=== PATIENT | male | born 1970 | race Caucasian/White ===

== ENCOUNTER 2018-06-09 07:00 | Day surgery (SDC) | payer BC ==
[~2018-06-09] VITALS: Ht 188 cm; Wt 83.9 kg
[~2018-06-09 07:00] MED LIST: ASPIRIN81 M2 PO; FEOSOL325 MG PO; INSULIN PUMP MC; NORMODYNE,TRAN200 MG PO; NORVASC10 MG PO; PRAVACHOL80 MG PO; VITAMIN D2000 UNIT PO
[2018-06-09 07:25] LABS: HEMATOCRIT 27.4 % (38.0-50.0); HEMOGLOBIN 8.9 G/DL (12.5-16.6); MCH 27.4 PG (29.0-34.0); MCHC 32.5 G/DL (30.0-36.0); MCV 84.3 FL (86-99); PLATELET COUNT 188 K/uL (156-360); RBC DIS.WIDTH-CV 13.6 % (11.8-14.6); RED BLOOD COUNT 3.25 M/uL (4.00-5.50); WHITE BLOOD COUNT 6.5 K/uL (4.1-10.2)
[2018-06-09 08:10] LABS: CHLORIDE 101 MEQ/L (99-109); POTASSIUM 4.6 MEQ/L (3.7-5.4); SODIUM 135 MEQ/L (136-147)
[2018-06-09 08:15] LABS: CREATININE 5.7 MG/DL (0.6-1.3); GFR ESTIMATE (CALCULATED) 11 mL/min/ (58.99-99999); GLUCOSE 126 mg/dL (70-99); UREA NITROGEN (BUN) 60 mg/dL (9-23)
[2018-06-09] MEDS ORDERED: NORCO 5/3251 TABLET PO (10:59)
[2018-06-09 11:30] VITALS: BP 165/91
[2018-06-09 12:36] VITALS: BP 163/87
[2018-06-09 12:59] VITALS: BP 156/88
== END 2018-06-09 13:05 | disposition home or self-care (01) ==
LOC: SDC 07:00
PROVIDERS: Surgery
PROC: 0WHG43Z Insertion of Infusion Device into Peritoneal Cavity, Percutaneous Endoscopic Approach (ICD-10-PCS; principal; 2018-06-09)
DX: I12.0 Hypertensive chronic kidney disease with stage 5 chronic kidney disease or end stage renal disease (principal); E11.22 Type 2 diabetes mellitus with diabetic chronic kidney disease; N18.6 End stage renal disease; E78.00 Pure hypercholesterolemia, unspecified; Z79.4 Long term (current) use of insulin; D64.9 Anemia, unspecified; Z83.3 Family history of diabetes mellitus; Z82.49 Family history of ischemic heart disease and other diseases of the circulatory system; Z72.0 Tobacco use; Z79.82 Long term (current) use of aspirin; G47.30 Sleep apnea, unspecified
CPT/HCPCS: 80048; 85027; C1750; J0330; J0690; J2250; J2405; J2710; J3010; J7643; S0020